=== PATIENT | male | born 2000 | race African-American/Black ===

== ENCOUNTER 2024-03-22 20:13 | Emergency (ER) | payer MEDICAID ==
[~2024-03-22] VITALS: Ht 177.8 cm; Wt 80.0 kg
[2024-03-22 20:27] VITALS: BP 134/89; PULSE 84; RESP 16; TEMP 97.9; O2SAT 98
== END 2024-03-22 22:25 | disposition home or self-care (01) ==
LOC: ER 20:13
DX: R07.89 Other chest pain (principal); F41.9 Anxiety disorder, unspecified; F19.90 Other psychoactive substance use, unspecified, uncomplicated
CPT/HCPCS: 71045; 99283